=== PATIENT | male | born 1955 ===

== ENCOUNTER 2020-12-21 21:03 | Inpatient (IN) | payer MEDICARE ==
[~2020-12-21] VITALS: Ht 190.5 cm; Wt 94.2 kg
[~2020-12-21 21:03] MED LIST: AMIO200T42 PO; METO25TA35 PO; MULT-482 PO
--- NOTE | 2020-12-21 21:11 | NUR ---
FROM [facility]ARC[facility] VILLALTA OF RIB PAIN AFTER GLF FROM ETOH USE. PT REPORTS DRINKING 1/5 VODKA DAILY, LAST DRINK 0900 AM TODAY. FOUND TO HAVE PNA WITH CONCERNS FOR SEPSIS AT PREVIOUS FACILITY. EMS REPORTS SBP 90'S ENROUTE, WITH IMPROVEMENT WITH NS. PT PRESENTS VERY SHAKEY AND ETOH ODOR. HAS MULTIPLE SCABS TO BILAT FEET.
[2020-12-21 22:52] LABS: TROPONIN I < 0.015 ng/mL (0.000-0.045)
--- NOTE | 2020-12-21 23:26 | NUR ---
pt sleeping, resp even and unlabored
[2020-12-22] MEDS ORDERED: LORazepam 2 MG/ML, 1ML ONE (00:11)
[2020-12-22] MEDS ORDERED: LORazepam 2 MG/ML, 1ML IVPush ONE (00:30)
[2020-12-22] MEDS ORDERED: VANCOMYCIN PER PHARMACY MC PRN (01:00)
[2020-12-22] MEDS ORDERED: ONDANSETRON 2MG/ML, 2ML IVPush PRN (01:00)
[2020-12-22] MEDS ORDERED: VANCOMYCIN PMX 1GM/200ML 200 ML IV ONE (01:00)
--- NOTE | 2020-12-22 01:07 | NUR ---
REPORT GIVEN TO VINAY EDMOND
[2020-12-22] MEDS ORDERED: ENOXAPARIN 40 MG/0.4 ML ONE (01:09)
[2020-12-22] MEDS: ENOXAPARIN 40 MG/0.4 ML SQ SCH (01:28)
[2020-12-22] MEDS: PIPERACILLIN/TAZO 3.375 GM in DEXTROSE 5% 50 ML IV SCH ×4 (01:29→22:17)
[2020-12-22] MEDS ORDERED: LORazepam 2 MG/ML, 1ML IV PRN ×5 (01:30)
[2020-12-22 01:51] VITALS: BP 115/84
[2020-12-22] MEDS ORDERED: PHARMACOKINETIC MONITORING MC PRN (02:00)
[2020-12-22] MEDS ORDERED: PHARMACOKINETIC CONSULTATION MC ONE (02:00)
[2020-12-22] MEDS ORDERED: VANCOMYCIN 2,500 MG in SODIUM CHLORIDE 0.9% 500 ML IV ONE (02:00)
[2020-12-22 03:18] VITALS: BP 119/78
[2020-12-22] MEDS: THIAMINE 200 MG, MVI ADULT 10 ML, FOLIC ACID 1 MG in D5%-0.9% NACL 1,000 ML IV SCH (06:17)
[2020-12-22 06:19] VITALS: BP 112/79
[2020-12-22 07:32] LABS: BASOPHILS % (AUTO) 1 % (0-1); EOSINOPHILS % (AUTO) 12 % (1-7); LYMPHOCYTES % (AUTO) 18 % (22-44); MEAN CORPUSCULAR HEMOGLOBIN 34.3 pg (27.5-34.5); MEAN CORPUSCULAR HGB CONC 32.4 g/dL (33.2-36.2); MEAN PLATELET VOLUME 6.9 fL (7.4-10.4); MONOCYTES % (AUTO) 12 % (2-9); NEUTROPHILS % (AUTO) 56 % (42-75); PLATELET COUNT 132 x10^3/uL (130-400); RED BLOOD COUNT 2.91 x10^6/uL (4.38-5.82); RED CELL DISTRIBUTION WIDTH 17.8 % (9.4-14.8)
[2020-12-22] MEDS: PANTOPRAZOLE 40 MG IV IVPush SCH (08:10)
[2020-12-22] MEDS: AMIODARONE 200 MG TABLET PO SCH ×2 (08:10→21:01)
[2020-12-22 10:46] LABS: ALBUMIN 2.3 g/dL (3.4-5.0); ANION GAP 9 mmol/L (5-15); CALCIUM 7.6 mg/dL (8.5-10.1); CHLORIDE 109 mmol/L (98-107)
[2020-12-22 10:52] LABS: ALANINE AMINOTRANSFERASE 38 U/L (12-78); ALKALINE PHOSPHATASE 72 U/L (45-117); BILIRUBIN,TOTAL 0.9 mg/dL (0.2-1.0); CREATININE 1.63 mg/dL (0.7-1.3); TROPONIN I < 0.015 ng/mL (0.000-0.045)
[2020-12-22 13:04] VITALS: BP 120/75
[2020-12-22] MEDS ORDERED: MAGNESIUM SULFATE PMX 4GM/100M 100 ML IVPB ONE (16:00)
[2020-12-22] MEDS: POTASSIUM CHLORIDE 20 MEQ TAB.ER.PRT PO SCH (16:38)
[2020-12-22 20:14] VITALS: BP 111/71
[2020-12-22 20:58] VITALS: BP 107/72
[2020-12-23 01:01] VITALS: BP 117/77
[2020-12-23] MEDS ORDERED: VANCOMYCIN 1,800 MG in SODIUM CHLORIDE 0.9% 250 ML IV SCH (02:00)
[2020-12-23] MEDS: ENOXAPARIN 40 MG/0.4 ML SQ SCH (02:45)
[2020-12-23] MEDS: ACETAMINOPHEN 500 MG TABLET PO PRN ×2 (02:45→22:11)
[2020-12-23] MEDS: PIPERACILLIN/TAZO 3.375 GM in DEXTROSE 5% 50 ML IV SCH ×4 (03:42→22:12)
[2020-12-23 06:58] LABS: ALBUMIN 2.1 g/dL (3.4-5.0); ANION GAP 9 mmol/L (5-15); CHLORIDE 106 mmol/L (98-107)
[2020-12-23 07:04] LABS: ALANINE AMINOTRANSFERASE 36 U/L (12-78); ALKALINE PHOSPHATASE 75 U/L (45-117); BILIRUBIN,TOTAL 0.8 mg/dL (0.2-1.0); CREATININE 1.34 mg/dL (0.7-1.3); TOTAL PROTEIN 6.2 g/dL (6.4-8.2)
[2020-12-23] MEDS: THIAMINE 200 MG, MVI ADULT 10 ML, FOLIC ACID 1 MG in D5%-0.9% NACL 1,000 ML IV SCH (07:25)
[2020-12-23 07:27] VITALS: BP 124/78
[2020-12-23] MEDS: POTASSIUM CHLORIDE 20 MEQ TAB.ER.PRT PO SCH ×2 (07:52→16:31)
[2020-12-23] MEDS: PANTOPRAZOLE 40 MG IV IVPush SCH (07:52)
[2020-12-23] MEDS: AMIODARONE 200 MG TABLET PO SCH ×2 (07:53→22:11)
[2020-12-23 09:09] LABS: CLOSTRIDIUM DIFFICILE ANTIGEN NEGATIVE; CLOSTRIDIUM DIFFICILE TOXIN NEGATIVE (Negative)
[2020-12-23 09:28] LABS: BASOPHILS % (AUTO) 1 % (0-1); EOSINOPHILS % (AUTO) 13 % (1-7); LYMPHOCYTES % (AUTO) 15 % (22-44); MEAN CORPUSCULAR HEMOGLOBIN 33.9 pg (27.5-34.5); MEAN PLATELET VOLUME 6.6 fL (7.4-10.4); MONOCYTES % (AUTO) 10 % (2-9); NEUTROPHILS % (AUTO) 61 % (42-75); PLATELET COUNT 148 x10^3/uL (130-400); RED BLOOD COUNT 3.82 x10^6/uL (4.38-5.82); RED CELL DISTRIBUTION WIDTH 16.8 % (9.4-14.8)
[2020-12-23 15:11] VITALS: BP 133/90
[2020-12-23 19:47] VITALS: BP 129/86
[2020-12-23 22:02] VITALS: BP 156/105
[2020-12-24 01:08] VITALS: BP 137/81
[2020-12-24] MEDS: ACETAMINOPHEN 500 MG TABLET PO PRN ×2 (03:00→08:24)
[2020-12-24] MEDS: ENOXAPARIN 40 MG/0.4 ML SQ SCH (03:01)
[2020-12-24] MEDS: PIPERACILLIN/TAZO 3.375 GM in DEXTROSE 5% 50 ML IV SCH ×2 (03:05→10:07)
[2020-12-24] MEDS ORDERED: PANTOPRAZOLE 40MG TABLET PO SCH (06:30)
[2020-12-24 06:31] VITALS: BP 134/91
[2020-12-24 07:55] VITALS: BP 128/84
[2020-12-24] MEDS: POTASSIUM CHLORIDE 20 MEQ TAB.ER.PRT PO SCH (08:24)
[2020-12-24] MEDS: AMIODARONE 200 MG TABLET PO SCH (08:25)
[2020-12-24] MEDS: THIAMINE 200 MG, MVI ADULT 10 ML, FOLIC ACID 1 MG in D5%-0.9% NACL 1,000 ML IV SCH (08:26)
[2020-12-24] MEDS ORDERED: AMIO200T42 PO (14:40)
[2020-12-24] MEDS ORDERED: METO25TA35 PO (14:40)
[2020-12-24] MEDS ORDERED: PANT40TA6 PO (14:40)
[2020-12-24 15:08] VITALS: BP 129/90
== END 2020-12-24 18:22 | disposition home or self-care (01) | DRG 871 ==
LOC: ED 23:50 → EDIP 12-22 00:10 → SUATTDRO 12-22 00:49 → ED 12-22 01:03 → 4WST 12-22 01:39
PROVIDERS: ADMIT Internal Medicine; ATTEND Hospitalist
DX: A41.9 Sepsis, unspecified organism (principal); J96.01 Acute respiratory failure with hypoxia; N17.0 Acute kidney failure with tubular necrosis; R65.21 Severe sepsis with septic shock; F10.239 Alcohol dependence with withdrawal, unspecified; D75.89 Other specified diseases of blood and blood-forming organs; E03.9 Hypothyroidism, unspecified; E78.5 Hyperlipidemia, unspecified; I10 Essential (primary) hypertension; I48.0 Paroxysmal atrial fibrillation; S09.90XA Unspecified injury of head, initial encounter; W18.39XA Other fall on same level, initial encounter; Y92.89 Other specified places as the place of occurrence of the external cause; Y93.89 Activity, other specified; Y99.8 Other external cause status; Z91.19 Patient's noncompliance with other medical treatment and regimen
CPT/HCPCS: 36415; 70450; 71045; 80053; 83605; 83735; 84100; 84484; 85025; 87040; 87324; 93005; 93970; 96374; 99285; G0378; J1650; J2543; J3370; J3411; J7042; C9113; J2060; J3475; J7040; J7050